=== PATIENT | male | born 1965 | race American Indian/Alaskan Native ===

== ENCOUNTER 2022-02-19 02:54 | Emergency (ER) | payer SELFPAY ==
[2022-02-19 03:40] LABS: Basophils % (Auto) 0.7 % (0.0-1.8); Eosinophils # (Auto) 0.1 K/mm3 (0.0-0.4); Eosinophils % (Auto) 1.4 % (0.0-4.3); Hematocrit 47.4 % (35.5-45.6); Hemoglobin 15.7 gm/dl (11.8-15.2); Lymphocytes # (Auto) 3.4 K/mm3 (1.2-5.4); Lymphocytes % (Auto) 49.5 % (13.4-35.0); Mean Corpuscular HGB Conc 33 % (32-34); Mean Corpuscular Volume 91 fl (84-94); Monocytes # (Auto) 0.6 K/mm3 (0.0-0.8); Monocytes % (Auto) 9.3 % (0.0-7.3); Platelet Count 359 K/mm3 (140-440); Red Blood Count 5.19 M/mm3 (3.65-5.03); Red Cell Distribution Width 14.4 % (13.2-15.2)
[2022-02-19 03:59] LABS: Alanine Aminotransferase 20 units/L (7-56); Albumin 4.6 g/dL (3.9-5); BUN/Creatinine Ratio 15; Blood Urea Nitrogen 17 mg/dL (9-20); Calcium 9.7 mg/dL (8.4-10.2); Hemolysis Index 14
[2022-02-19 09:10] LABS: Bacteria,Urine 1+ /HPF (Negative); Calcium Oxalate Crystals,Urine FEW; Hyaline Casts,Urine 10 /LPF; Mucus,Urine 3+ /HPF
[2022-02-19 09:16] LABS: Amphetamine Screen,Urine Negative; Benzodiazepines Screen,Urine Negative; Cocaine Screen,Urine Negative; Methadone Screen,Urine Negative; Opiate Screen,Urine Negative
[2022-02-19 09:34] LABS: Cannabinoid Screen,Urine Positive
[2022-02-19 09:36] LABS: Bilirubin,Urine Negative (Negative); Color,Urine Straw (Yellow)
[2022-02-19] MEDS ORDERED: SODIUM CHLORIDE 0.9% 1000 ML 1,000 ML IV ONE (09:36)
[2022-02-19] MEDS ORDERED: diphenhydrAMINE 25 MG CAP PO ONE (09:36)
[2022-02-19] MEDS ORDERED: ACETAMINOPHEN 500 MG TAB PO ONE (09:36)
[2022-02-19 09:37] LABS: Blood,Urine Negative (Negative)
--- NOTE | 2022-02-19 09:53 | Emergency Department Report ---
ED General Adult HPI - General Chief complaint: Headache Stated complaint: POSSIBLE STROKE Time Seen by Provider: 02/19/22 09:46 Source: patient Mode of arrival: Ambulatory Limitations: No Limitations - History of Present Illness Initial comments: Patient 56-year-old male who presents with generalized weakness malaise for 1 week. States dizziness dry mouth and general weakness for the past 2 days. Patient denies nausea vomiting no chest pain no fever or chills no productive cough. Symptoms are exacerbated by activity. Symptoms are relieved by nothing tried. Patient rates symptoms at 5/10 for generalized weakness. There is no paralysis. There is been no slurred speech. No change in mentation per family members. Patient arrived to ED via POV patient is amatory with steady gait. Patient states symptoms are generalized cannot verbalize any focal weakness. Patient is tolerating p.o. intake and hydration without nausea. Patient denies history of substance endorses history of hypertension. - Related Data Previous Rx's Medication Instructions Recorded Last Taken Type Acetaminophen [Acetaminophen TAB] 1,000 mg PO Q6HR PRN #30 tablet 02/19/22 Unknown Rx cephALEXin [Keflex] 500 mg PO Q12HR 7 Days #14 cap 02/19/22 Unknown Rx diphenhydrAMINE [Benadryl CAP] 25 mg PO Q8HR PRN #30 capsule 02/19/22 Unknown Rx Allergies Allergy/AdvReac Type Severity Reaction Status Date / Time No Known Allergies Allergy Verified 03/17/15 02:48 ED Review of Systems ROS: Stated complaint: POSSIBLE STROKE Other details as noted in HPI Constitutional: malaise Eyes: denies: eye pain, eye discharge, vision change ENT: denies: ear pain, throat pain Respiratory: denies: cough, shortness of breath, wheezing Cardiovascular: denies: chest pain, palpitations Endocrine: no symptoms reported Gastrointestinal: denies: abdominal pain, nausea, vomiting, diarrhea Genitourinary: denies: urgency, dysuria, frequency, hematuria, discharge Musculoskeletal: denies: back pain, joint swelling, arthralgia Skin: denies: rash, lesions Neurological: headache, weakness, vertigo. denies: numbness, paresthesias, confusion Psychiatric: anxiety. denies: depression Hematological/Lymphatic: denies: easy bleeding, easy bruising ED Past Medical Hx - Past Medical History Previous Medical History?: Yes Hx Hypertension: Yes Additional medical history: EYE PROBLEMS - Surgical History Past Surgical History?: No - Social History Smoking Status: Never Smoker Substance Use Type: None - Medications Home Medications: Home Medications Medication Instructions Recorded Confirmed Last Taken Type Acetaminophen [Acetaminophen TAB] 1,000 mg PO Q6HR PRN #30 tablet 02/19/22 Unknown Rx cephALEXin [Keflex] 500 mg PO Q12HR 7 Days #14 cap 02/19/22 Unknown Rx diphenhydrAMINE [Benadryl CAP] 25 mg PO Q8HR PRN #30 capsule 02/19/22 Unknown Rx ED Physical Exam - General Limitations: No Limitations General appearance: alert, in no apparent distress - Head Head exam: Present: normocephalic, normal inspection - Eye Eye exam: Present: PERRL, EOMI, conjunctival injection. Absent: nystagmus Pupils: Present: normal accommodation - ENT ENT exam: Present: normal orophraynx, mucous membranes moist, TM's normal bilaterally, normal external ear exam - Neck Neck exam: Present: normal inspection, full ROM. Absent: tenderness, meningismus, lymphadenopathy, thyromegaly - Respiratory Respiratory exam: Present: normal lung sounds bilaterally. Absent: respiratory distress, wheezes - Cardiovascular Cardiovascular Exam: Present: regular rate, normal rhythm, normal heart sounds. Absent: systolic murmur, diastolic murmur, rubs, gallop - GI/Abdominal GI/Abdominal exam: Present: soft, normal bowel sounds. Absent: distended, tenderness - Rectal Rectal exam: Present: deferred - Extremities Exam Extremities exam: Present: normal inspection, full ROM, normal capillary refill. Absent: tenderness - Back Exam Back exam: Present: normal inspection, full ROM. Absent: CVA tenderness (R), CVA tenderness (L) - Neurological Exam Neurological exam: Present: alert, oriented X3, CN II-XII intact, normal gait, reflexes normal. Absent: motor sensory deficit - Expanded Neurological Exam Expanded Patient oriented to: Present: person, place, time Speech: Present: fluid speech Cranial nerves: EOM's Intact: Normal, Gag Reflex: Normal, Tongue Deviation: Normal, Nystagmus: Normal, Facial Sensation: Normal Cerebellar function: Finger to Nose: Normal, [place]: Normal Motor strength exam: RUE: 5, LUE: 5, RLE: 5, LLE: 5 DTR: knee (R): 1+, knee (L): 1+ Best Eye Response ([place]): (4) open spontaneously Best Motor Response ([place]): (6) obeys commands Best Verbal Response ([place]): (5) oriented R[place]a Total: 15 - Psychiatric Psychiatric exam: Present: normal affect, normal mood - Skin Skin exam: Present: warm, dry, intact, normal color. Absent: rash ED Course Vital Signs 02/19/22 02/19/22 02:56 10:27 Temperature 97.7 F Pulse Rate 115 H Respiratory 18 14 Rate Blood Pressure 154/97 O2 Sat by Pulse 99 Oximetry ED Medical Decision Making - Lab Data Result diagrams: 02/19/22 03:20 02/19/22 03:20 Labs 02/19/22 02/19/22 02/19/22 03:03 03:20 03:20 WBC 6.9 RBC 5.19 H Hgb 15.7 H Hct 47.4 H MCV 91 MCH 30 MCHC 33 RDW 14.4 Plt Count 359 Lymph % (Auto) 49.5 H [place] % (Auto) 9.3 H Eos % (Auto) 1.4 Baso % (Auto) 0.7 Lymph # (Auto) 3.4 [place] # (Auto) 0.6 Eos # (Auto) 0.1 Baso # (Auto) 0.0 Seg Neutrophils % 39.1 L Seg Neutrophils # 2.7 Sodium 140 Potassium 3.6 Chloride 104.2 Carbon Dioxide 21 L Anion Gap 18 BUN 17 Creatinine 1.1 Estimated GFR > 60 BUN/Creatinine Ratio 15 Glucose 122 H POC Glucose 123 H Calcium 9.7 Total Bilirubin 1.20 AST 17 ALT 20 Alkaline Phosphatase 43 Total Protein 7.8 Albumin 4.6 Albumin/Globulin Ratio 1.4 Urine Color Urine Turbidity Urine pH Ur Specific [place] Urine Protein Urine Glucose (UA) Urine Ketones Urine Blood Urine Nitrite Ur Reducing Substances Urine Bilirubin Urine Ictotest Urine Urobilinogen Ur Leukocyte Esterase Urine WBC (Auto) Urine RBC (Auto) U Epithel Cells (Auto) Urine Bacteria (Auto) Calcium Oxalate Crystal Hyaline Casts Urine Mucus Urine Opiates Screen Urine Methadone Screen Ur Barbiturates Screen Ur Phencyclidine Scrn Ur Amphetamines Screen U Benzodiazepines Scrn Urine Cocaine Screen U Marijuana (THC) Screen Drugs of Abuse Note 02/19/22 02/19/22 Unknown Unknown WBC RBC Hgb Hct MCV MCH MCHC RDW Plt Count Lymph % (Auto) [place] % (Auto) Eos % (Auto) Baso % (Auto) Lymph # (Auto) [place] # (Auto) Eos # (Auto) Baso # (Auto) Seg Neutrophils % Seg Neutrophils # Sodium Potassium Chloride Carbon Dioxide Anion Gap BUN Creatinine Estimated GFR BUN/Creatinine Ratio Glucose POC Glucose Calcium Total Bilirubin AST ALT Alkaline Phosphatase Total Protein Albumin Albumin/Globulin Ratio Urine Color Straw Urine Turbidity Clear Urine pH 6.0 Ur Specific [place] 1.015 Urine Protein 100 mg/dl Urine Glucose (UA) Negative Urine Ketones 15 Urine Blood Negative Urine Nitrite Negative Ur Reducing Substances Not Reportable Urine Bilirubin Negative Urine Ictotest Not Reportable Urine Urobilinogen 2.0 Ur Leukocyte Esterase Negative Urine WBC (Auto) 7.0 H Urine RBC (Auto) 2.0 U Epithel Cells (Auto) < 1.0 Urine Bacteria (Auto) 1+ Calcium Oxalate Crystal Few Hyaline Casts 10 Urine Mucus 3+ Urine Opiates Screen Negative Urine Methadone Screen Negative Ur Barbiturates Screen Negative Ur Phencyclidine Scrn Negative Ur Amphetamines Screen Negative U Benzodiazepines Scrn Negative Urine Cocaine Screen Negative U Marijuana (THC) Screen Positive Drugs of Abuse Note Disclamer - EKG Data EKG shows normal: sinus rhythm, axis, intervals, QRS complexes, ST-T waves Rate: normal, tachycardia - EKG Data Interpretation: normal EKG (Normal sinus tach no ST elevated MS interpreted by ED attending) - Radiology Data Radiology results: report reviewed, image reviewed CHEST 2 VIEWS INDICATION / CLINICAL INFORMATION: dizziness weakness. COMPARISON: None available at this time. FINDINGS: SUPPORT DEVICES: None. HEART / MEDIASTINUM: No significant abnormality. LUNGS / PLEURA: No significant pulmonary or pleural abnormality. No pneumothorax. ADDITIONAL FINDINGS: No significant additional findings. IMPRESSION: 1. No acute findings. Signer Name: Kristofer Bertrand MD Signed: 02/19/2022 9:57 AM Workstation Name: [id number] Transcribed By: DT Dictated By: Chu Bertrand MD Electronically Authenticated By: Chu Bertrand MD Signed Date/Time: 02/19/22956 DD/ TD/TT: HEST 2 VIEWS INDICATION / CLINICAL INFORMATION: dizziness weakness. COMPARISON: None available at this time. FINDINGS: SUPPORT DEVICES: None. HEART / MEDIASTINUM: No significant abnormality. LUNGS / PLEURA: No significant pulmonary or pleural abnormality. No pneumothorax. ADDITIONAL FINDINGS: No significant additional findings. IMPRESSION: 1. No acute findings. Signer Name: Kristofer Bertrand MD Signed: 02/19/2022 9:57 AM Workstation Name: [id number] Transcribed By: JOCELYNN Dictated By: Chu Bertrand MD Electronically Authenticated By: Chu Bertrand MD Signed Date/Time: 02/19/22956 DD/ 5 TD/TT: - Medical Decision Making CT head is normal, chest x-ray is normal, EKG normal sinus rhythm left atrial enlargement no ST elevated MS interpreted by ED attending. Heart score is 1, VENTURA score is 0. Troponin less than 0.01. Labs noted as above UA noted for leukocytes plan treat for UTI. Symptoms are improved after medications given in ED. Patient is currently alert oriented x3 amatory without dizziness lightheadedness or headache. There is no focal weakness patient is amatory with steady gait. Plan DC to home, diagnosis UTI, headache. Follow-up primary care doctor in 2 to 3 days. Patient will return to ER should symptoms worsen or return. Patient verbalizes agreement and understanding of discharge plan patient to home with family member in POV at this time. Critical care attestation.: If time is entered above; I have spent that time in minutes in the direct care of this critically ill patient, excluding procedure time. ED Disposition Clinical Impression: Vertigo UTI (urinary tract infection) Qualifiers: Urinary tract infection type: acute cystitis Hematuria presence: without hematuria Qualified Code(s): N30.00 - Acute cystitis without hematuria Disposition: HOME / SELF CARE / HOMELESS Is pt being admited?: No Does the pt Need Aspirin: No Condition: Stable Instructions: Urinary Tract Infection, Adult, Dizziness, [id number] Additional Instructions: Take medication as prescribed, continue to hydrate as directed. Follow-up with your doctor in 2 to 3 days. Return to emergency department should symptoms worsen. Prescriptions: Acetaminophen [Acetaminophen TAB] 1,000 mg PO Q6HR PRN #30 tablet PRN Reason: Headache diphenhydrAMINE [Benadryl CAP] 25 mg PO Q8HR PRN #30 capsule PRN Reason: headache Dizziness cephALEXin [Keflex] 500 mg PO Q12HR 7 Days #14 cap Referrals: CARBUCCIA,MIKI, MD [Primary Care Provider] - 3-5 Days Forms: Work/School Release Form(ED) Time of Disposition: 11:35
--- NOTE | 2022-02-19 10:02 | XRay Report ---
CHEST 2 VIEWS INDICATION / CLINICAL INFORMATION: dizziness weakness. COMPARISON: None available at this time. FINDINGS: SUPPORT DEVICES: None. HEART / MEDIASTINUM: No significant abnormality. LUNGS / PLEURA: No significant pulmonary or pleural abnormality. No pneumothorax. ADDITIONAL FINDINGS: No significant additional findings. IMPRESSION: 1. No acute findings. Signer Name: Kristofer Bertrand MD Signed: 02/19/2022 9:57 AM Workstation Name: [id number]
--- NOTE | 2022-02-19 10:35 | Cat Scan Report ---
CT BRAIN: 02/19/2022 INDICATION / CLINICAL INFORMATION: headache weakness. COMPARISON: None available. FINDINGS: BRAIN/INTRACRANIAL STRUCTURES: Unenhanced CT images of the brain demonstrate no evidence of acute abn ormality. Ventricles and sulci are normal in size and shape. There is no evidence of hemorrhage or mass. There are no abnormal extra-axial fluid collections. EXTRACRANIAL STRUCTURES: Unremarkable. IMPRESSION: No acute abnormality. All CT scans at this location are performed using dose reduction to ALARA by means of automated expos ure control. Signer Name: Everett Harman MD Signed: 02/19/2022 10:30 AM Workstation Name: [id number]
[2022-02-19 12:03] VITALS: BP 118/60
--- NOTE | 2022-02-20 10:35 | Electrocardiograph Report ---
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
== END 2022-02-19 12:03 | disposition home or self-care (01) ==
LOC: ED 02:54
DX: N39.0 Urinary tract infection, site not specified (principal); R42 Dizziness and giddiness; I10 Essential (primary) hypertension; Z79.899 Other long term (current) drug therapy
CPT/HCPCS: 36415; 70450; 71046; 80053; 80307; 81001; 82962; 84484; 85025; 93005; 96360